=== PATIENT | male | born 1960 | race Caucasian/White ===

== ENCOUNTER 2025-09-17 12:24 | Emergency (ER) | payer BC, SELFPAY ==
[2025-09-17 12:31] VITALS: BP 148/91
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
[2025-09-17 14:56] VITALS: BMI 34.7
[2025-09-17 15:15] LABS: Hematocrit 46.7 % (39.0-52.0); Hemoglobin 16.9 g/dL (13.0-18.0); Mean Corp Hgb Conc. 36.2 g/dL (33.0-37.0); Mean Corpuscular Volume 89.8 fL (80.0-94.0); Nucleated Red Blood Cells % 0 % (-); Platelet Count 172 10^3/uL (130-400); Red Cell Dist. Width 12.2 % (11.5-14.5)
[2025-09-17 15:30] LABS: ALT (SGPT) 75 U/L (0-50); AST (SGOT) 38 U/L (17-59); Albumin 4.7 g/dl (3.5-5.0); Alkaline Phosphatase 95 U/L (38-126); Blood Urea Nitrogen 12 mg/dl (9-20); Calcium 9.5 mg/dl (8.4-10.2); Carbon Dioxide 30 mmol/L (22-30); Chloride 102 mmol/L (98-107); Estimated Creatinine Clearance 117 ml/min; Glucose 85 mg/dl (70-99); Potassium 4.4 mmol/L (3.5-5.1); Sodium 136 mmol/L (135-145); Total Protein 7.8 g/dl (6.3-8.2); eGFR > 60.00
--- NOTE | 2025-09-17 16:25 | EDCM ---
Notified by Florence MIN pt being discharged on Eliquis. Script sent to [facility] by Florence. I called [facility] and spoke to both vice president pharmacy and pharmacist. Eliquis will be [phone] with [facility]. They tried to run 30 day free trial and $10 co pay cards
but were not successful. I met with Mr Delatorre and he activated the $10 co pay card. He will follow up with the pharmacy. Florence updated and pt will be given discharge instructions. No further CM needs at this time.
[2025-09-17 16:27] VITALS: BP 139/91
[2025-09-17] MEDS: ELIQUIS 10 MG PO (16:37)
== END 2025-09-17 16:40 | disposition home or self-care (01) ==
LOC: EMR 12:24
PROVIDERS: Nurse Practitioner; EMERGENCY PHYSICIAN Emergency Medicine; FAMILY PHYSICIAN Family Medicine
DX: I82.491 Acute embolism and thrombosis of other specified deep vein of right lower extremity (principal); E78.00 Pure hypercholesterolemia, unspecified
CPT/HCPCS: 99284; 80053; 85025; 93971